=== PATIENT | male | born 1975 | race Caucasian/White ===

== ENCOUNTER 2023-05-15 08:49 | Emergency (ER) | payer BC, SELFPAY ==
[2023-05-15 08:55] VITALS: BP 113/90; PULSE 95; RESP 18; TEMP 36.6; O2SAT 97
[2023-05-15 08:58] VITALS: BP 113/90; PULSE 95; RESP 18; TEMP 36.6; O2SAT 97
--- NOTE | 2023-05-15 09:14 | ED.URI ---
HPI - URI/Sore Throat General Chief Complaint: Upper Respiratory Infection Stated Complaint: SORE THROAT/STUFFY NOSE Source: patient and RN notes reviewed Mode of arrival: ambulatory Limitations: no limitations History of Present Illness HPI Narrative: 48-year-old male presented for complaint of sore throat, headache, body aches, sinus pressure/congestion, cough, fever/chills. States he woke sweating in the night. Took negative home COVID test today. Taking Sudafed and zyrtec. Denies sob, wheezing, n/v/d. MD elicited complaint: cough Related Data Home Medications Medication Instructions Recorded Confirmed atorvastatin 20 mg tablet 20 mg DIRECTED 05/15/23 05/15/23 celecoxib 200 mg capsule 200 mg DIRECTED 05/15/23 05/15/23 chlorthalidone 25 mg tablet 25 mg DIRECTED 05/15/23 05/15/23 losartan 25 mg tablet 25 mg PO DAILY 05/15/23 05/15/23 Allergies Allergy/AdvReac Type Severity Reaction Status Date / Time erythromycin base Allergy Unknown Vomiting Verified 01/31/23 10:30 codeine AdvReac Unknown ITCHING Verified 01/31/23 10:30 Review of Systems Review of Systems: CONSTITUTIONAL: Endorses malaise, chills, sweats, fever EYES: Denies visual changes, redness, or discharge ENT: Reports rhinorrhea, congestion, sore throat CARDIOVASCULAR: Denies chest pain, palpitations, edema RESPIRATORY: Reports cough, post nasal drainage. Denies dyspnea GASTROINTESTINAL: Denies abdominal pain, nausea, vomiting, diarrhea SKIN: Denies rash or itching MUSCULOSKELETAL: Denies myalgia NEUROLOGIC: Denies headache [facility] Past Medical History Medical History Anxiety state Benign essential HTN Cervical spondylosis with radiculopathy Cervical spondylosis without myelopathy Cervical stenosis of spinal canal Chronic cholecystitis with calculus Elevated random blood glucose level Encounter for other specified surgical aftercare Encounter for other specified surgical aftercare Essential (primary) hypertension Hyperlipidemia Intradermal nevus Left flank mass Lipoma of abdominal wall Lipoma of torso Lipomatosis of subcutaneous tissue Mass of sternum Migraine without aura and without status migrainosus, not intractable Psychophysiological insomnia PTSD (post-traumatic stress disorder) Skin tag Symptomatic cholelithiasis Ventral hernia without obstruction or gangrene Ventral hernia without obstruction or gangrene Surgical History Surgical History H/O ventral hernia repair Hx laparoscopic cholecystectomy Family History Family History Grandparent Family history of lung cancer Mother Hypertension Depression Father Alcohol abuse Social History Social History Social History: Spouse Smoking status: Never smoker Second hand tobacco smoke exposure: No Alcohol intake: current Drinks per week: 3 Substance use: never Substance use type: does not use Lack of Transportation: No Lack of Food: Never True Current Housing: I Have Housing Concerned About Future Housing: No Difficulty Paying Gas/Electric Bills: No Difficulty Paying for Meds: No Currently Unemployed: No Education: Associate Degree Difficulty w/ Childcare or Family Care: No Living arrangements: with family Occupation/Education: occupation Gender identity (if verbalized by the patient): Male Sexual Orientation (if Verbalized by the Patient): Straight or Heterosexual Exam Narrative: GENERAL: mildly Ill-appearing, nontoxic no acute distress. EYES: conjunctivae clear ENT: Mucous membranes moist. TM pearly garcia with dull light reflex bilaterally; no tragal tenderness. Oropharynx not erythematous without lesions or exudate, no drooling, no hoarseness, no trismus, uvula midline. No tripod positioning, muffled vo
== END 2023-05-15 09:39 | disposition home or self-care (01) ==
PROVIDERS: Emergency Provider Nurse Practitioner Family; PCP Family Medicine
DX: J06.9 Acute upper respiratory infection, unspecified (principal); I10 Essential (primary) hypertension; M47.812 Spondylosis without myelopathy or radiculopathy, cervical region; E78.5 Hyperlipidemia, unspecified
CPT/HCPCS: 87081; 87804; 87880; 99213; G0463

== ENCOUNTER 2023-06-18 14:32 | Outpatient (RCR) | payer BC, SELFPAY ==
[2023-06-18 14:31] VITALS: BMI 40.1
[2023-06-18 15:32] VITALS: BMI 40.1
== END 2023-09-16 09:32 | disposition home or self-care (01) ==
LOC: ANHDMC 14:32
PROVIDERS: PCP Family Medicine; Visit Provider Family Medicine
DX: E11.9 Type 2 diabetes mellitus without complications (principal); Z68.42 Body mass index [BMI] 45.0-49.9, adult; Z71.3 Dietary counseling and surveillance
CPT/HCPCS: 97802

== ENCOUNTER 2024-01-14 10:44 | Outpatient (CLI) | payer BC, SELFPAY ==
--- NOTE | ~2024-01-14 | XR_ITS ---
EXAMINATION: XR elbow LT 2V DATE: 01/14/2024 10:57 INDICATION: Lateral epicondylitis, unspecified elbow. Left elbow pain. TECHNIQUE: 2 views of left elbow were obtained. COMPARISON: None. FINDINGS: Alignment is normal. No fracture. Joint spaces are normal. No elbow joint effusion. IMPRESSION: 1. Normal left elbow. Reviewed, dictated and finalized at location A. IMPRESSION: 1. Normal left elbow.
== END 2024-01-14 10:45 ==
PROVIDERS: PCP Orthopaedic Surgery; Visit Provider Student in an Organized Health Care Education/Training Program
DX: M77.12 Lateral epicondylitis, left elbow (principal)
CPT/HCPCS: 73070

== ENCOUNTER 2024-10-29 15:33 | Outpatient (CLI) | payer BC, SELFPAY ==
--- NOTE | ~2024-10-29 | CT_ITS ---
EXAMINATION: CT sinus wo con DATE: 10/29/2024 15:56 INDICATION: Chronic sinusitis TECHNIQUE: Computed tomography (CT) of the paranasal sinuses was performed without intravenous contra st. The dose-length product was 405.45 mGy-cm. Automated exposure control and iterative reconstructio n technique were employed. COMPARISON: None FINDINGS: There is mucosal thickening of the ethmoid, maxillary and left sphenoid sinuses. There is a mucous retention cyst of the right maxillary antrum. Leftward nasal septal deviation. Ostiomeatal un its are patent. Mastoids are pneumatized. IMPRESSION: 1. Moderate sinus disease. Reviewed, dictated and finalized at location B. IMPRESSION: 1. Moderate sinus disease.
== END 2024-10-29 15:34 | disposition home or self-care (01) ==
LOC: GOSHIMG 15:33
PROVIDERS: PCP Otolaryngology Otolaryngology/Facial Plastic Surgery; Visit Provider Otolaryngology Otolaryngology/Facial Plastic Surgery
DX: J32.9 Chronic sinusitis, unspecified (principal)
CPT/HCPCS: 70486

== ENCOUNTER 2025-03-08 08:27 | Outpatient (CLI) | payer BC, SELFPAY ==
--- NOTE | 2025-03-08 08:30 | ECG_ITS ---
Test Date: 2025-03-08 08:54:45 Measurements Intervals [place] Rate: 80 P: 36 OR: 172 QRS: -34 QRSD: 83 T: 21 QT: 348 QTc: 402 Interpretive Statements SINUS RHYTHM LEFT AXIS DEVIATION DELAYED PRECORDIAL R/S TRANSITION BASELINE ARTIFACT- I, II, III, AVR, AVL, AVF BORDERLINE ECG No previous ECG available for comparison Electronically Signed On 03-08-2025 09:03:07 CDT by Denis Oconnor D.O.
== END 2025-03-08 08:28 | disposition home or self-care (01) ==
LOC: ANHSURGERY 08:31
PROVIDERS: PCP Student in an Organized Health Care Education/Training Program; Visit Provider Otolaryngology Otolaryngology/Facial Plastic Surgery
DX: I10 Essential (primary) hypertension (principal); Z01.818 Encounter for other preprocedural examination; R94.31 Abnormal electrocardiogram [ECG] [EKG]
CPT/HCPCS: 93005

== ENCOUNTER 2025-03-12 02:00 | Day surgery (SDC) | payer BC, SELFPAY ==
--- OUTSIDE RECORDS SUMMARY | 2017-04-03 06:17 | XMS_ITS | Continuity of Care Document ---
[facility] [address] [facility] [place] [address] Phone Care Team Providers Care Offset Assistant Press Operator Name Role Phone Luzmaria Tomlin MD Unavailable Unavailable Advance Directives Directive Yes / No Effective Date File Name No Information Encounters Encounter Description Practice Location Reason(s) For Visit Diagnoses Date Provider Providers Copied on Encounter Formerly [facility], [address] [facility] [address], [place], [facility], [place] tel:[phone] [address] [place] [address] No Information Nabor Dutta. [address] [facility], [facility] [address], [place], [facility], [place]. tel:[phone] Family History Family Member Type Diagnosis Age At Onset No Information Payers Payer name Insurance type Covered republican ID Authoriza tion(s) No Information Social History Type Description Quantity Date Captured Comments Sex Male Smoking Status No Information Chief Complaint And Reason For Visit No Information Reason For Referral Reason For Referral No Information History Of Present Illness Encounter Date Complaint History Of Prese nt Illness No Information Functional Status Date Functional Assessmen t No Information Instructions Date Instruction Additional Infor mation No Information Assessments Type Assessment Date No Information Patient Care Teams Name Effective Dates (start - stop) Status Members No Information
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
--- NOTE | 2025-03-05 11:37 | SUR.PREOP ---
Addendum entered by Emilio Bey RN 03/08/25 12:46: Spoke with the pt and verified he can take Bupropion, amlodipine and (tizanidine if needed) the day of surgery. Pt verbalized understanding.marion Original Note: [facility] has started construction of its new state of the art ER which will open Spring 2026. With this, we anticipate parking may be a challenge for some our surgical patients and families. Parking spaces are limited but are available for all Surgical, obstetrics, and ER patients sharing this lot. If you arrive and find you are having a hard time finding a parking space, please note that we understand the challenges, please drive around the hospital and park near Hospital Entrance 1. When you enter this entrance, you can ask a volunteer to direct or take you back to the surgical waiting area to check in. We appreciate everyone?s understanding of these expected challenges while we build for your future. Report to the Outpatient Waiting Room, entrance under the green pavilion located off [address], at time _6am__ on date _03/12/25_. Planned Procedure Time: _730am_.? Time changes happen often and if your time is changed the preop area will call you the afternoon before. - You and your visitor will be asked to self-screen and do not enter if you have any COVID symptoms. Please call surgeon if you need to reschedule. - A mask is optional within the hospital at this time. Patients may have clear liquids (water, carbonated beverages, clear teas, apple juice) until 3 hours prior to surgery with a maximum of 20 ounces. - No food from midnight until time of surgery and no smoking, or chewing tobacco (or any form of nicotine). No chewing gum, candy or mints. Take only the following medications with a SIP of water on the morning of surgery: ___bupropion . DO NOT STOP ANY OF YOUR OTHER PRESCRIPTION MEDICATIONS PRIOR TO SURGERY EXCEPT THE FOLLOWING Hold all vitamins and supplements for 3 days per anesthesiologist. Medications to discontinue per physician None Date to take last dose of multivitamin is___03/08/25 Please no make-up, nail english, hairspray, perfume, deodorant, or body powder the day of surgery.? No jewelry (including any body piercings) or valuables the day of surgery, leave them at home.? Please take a shower or bath the night before, or the morning of, surgery with an antibacterial soap.? Wear comfortable, loose fitting clothing.? - Jewelry must be removed prior to entering the operating room.? Rings and piercings that are not removed may be cut off. - The hospital will not accept responsibility for valuables.? - Please leave all valuables, including medications, at home the day of surgery. If you are going home after surgery, a licensed telephone directory distributor driver must drive you home.? - NO public transportation without another adult if you receive anesthesia. - We recommend that an adult stay with you for 24 hours following discharge. - We also recommend that you do not drive, make important decision, drink alcoholic beverages, or take any drugs that were not prescribed by your health care provider for at least 24 hours after your discharge time. Follow any additional instructions given to you from your surgeon. Telephone instructions given to _Kenton_and asked if any additional questions and then verbalized understanding. Patient advised to call surgeon office or pre surgery nurse liaison [phone] if any additional questions.
[2025-03-05 11:41] VITALS: BMI 33.0
[2025-03-12] VITALS (11 sets, daily range): BP systolic 112–137; BP diastolic 75–106; PULSE 90–107; RESP 10–20; TEMP 36.3–36.6; O2SAT 95–100
[2025-03-12] MEDS: ACETAMINOPHEN 500 MG TABLET 1000 MG PO (06:35)
[2025-03-12] MEDS: LACTATED RINGERS 1,000 ML 30 ML IV CONT ×2 (06:40→10:11)
[2025-03-12] MEDS: OXYMETAZOLINE HCL 0.05% NAS 15 ML BTL (*BKC) 2 SPRAY NASAL ×3 (06:40→06:50)
--- NOTE | 2025-03-12 06:52 | WPDANESEPPF ---
Anes - Initial Pre Proc Eval Procedure: Operation Date: 03/12/25 07:30 Proposed Procedures p Image Guided Bilateral Complete Anterior and Posterior Ethmoidectomy, Bilateral Maxillary Antrostomy, Bilateral Inferior Turbinate Submucosal Resection, Bilateral Outfracture Inferior Turbinates - Judith Sheth MD s Septoplasty - Judith Sheth MD Date/Time: 03/12/25 06:52 Surgeon: Judith Sheth MD Pre Op Diagnosis: chronic sinusitis,deviated septum, Patient Data Age: 49 Gender: M Height: 1.78 m Weight: 104.5 kg Allergies Allergy/AdvReac Type Severity Reaction Status Date / Time erythromycin base Allergy Unknown Vomiting Verified 03/12/25 06:54 codeine AdvReac Unknown ITCHING Verified 03/12/25 06:54 Home Medications ?Medication ?Instructions ?Recorded ?Confirmed ?Type losartan 25 mg tablet 100 mg PO DAILY 05/15/23 03/05/25 History amlodipine 10 mg tablet 10 mg PO DAILY 01/15/24 03/05/25 History sertraline 100 mg tablet 150 mg PO DAILY 01/15/24 03/05/25 History blood-glucose sensor (FreeStyle #1 ea 03/19/24 03/05/25 Rx Priyanka 3 Plus Sensor device) atorvastatin 40 mg tablet 40 mg PO DAILY 04/08/24 03/05/25 History bupropion HCl (smoking deter) 150 150 mg PO DAILY 04/08/24 03/05/25 History mg tablet,12 hr sustained-release(smoking deterrent) azelastine 137 mcg (0.1 %) nasal 1 spray intranasal Q12H 30 days 09/28/24 03/05/25 Rx spray #30 mL tizanidine 2 mg tablet See Rx Instructions .Route 10/13/24 03/05/25 Rx .COMPLEX #60 tabs trazodone 50 mg tablet 50 mg PO QHS PRN insomnia #90 tabs 10/13/24 03/05/25 Rx multivitamin (Daily Multi-Vitamin 1 tablet PO DAILY 03/05/25 03/05/25 History tablet) tirzepatide 15 mg/0.5 mL 15 mg (0.5 mL) subcut WEEKLY #2 mL 03/05/25 Rx subcutaneous pen injector Laboratory Tests 03/12/25 03/12/25 06:42 06:44 Sodium Pending Potassium Pending Chloride Pending Carbon Dioxide Pending Anion Gap Pending BUN Pending Creatinine Pending Estim Creat Clear Calc Pending Estimated GFR Pending Glucose Pending POC Capillary Glucose 99 mg/dl (65-105) Calcium Pending Patient hx anesthesia problems: none Family hx anesthesia problems: none Results Review: All pre-operative results and documents have been reviewed as part of the pre-operative evaluation. [facility] Past Medical History Medical History Lateral epicondylitis of left elbow New onset type 2 diabetes mellitus Bronchitis Subacute maxillary sinusitis Establishing care with new doctor, encounter for PTSD (post-traumatic stress disorder) Hyperlipidemia Benign essential HTN Lipomatosis of subcutaneous tissue Ventral hernia without obstruction or gangrene Encounter for other specified surgical aftercare Symptomatic cholelithiasis Skin tag Psychophysiological insomnia Migraine without aura and without status migrainosus, not intractable Mass of sternum Lipoma of torso Left flank mass Intradermal nevus Essential (primary) hypertension Chronic cholecystitis with calculus Cervical stenosis of spinal canal Cervical spondylosis without myelopathy Cervical spondylosis with radiculopathy Anxiety state Elevated random blood glucose level Lipoma of abdominal wall Ventral hernia without obstruction or gangrene Encounter for other specified surgical aftercare Surgical History Surgical History Hx laparoscopic cholecystectomy H/O ventral hernia repair Family History Family History Grandparent Family history of lung cancer Mother Hypertension Depression Father Alcohol abuse Social History Social History Social History: Spouse Smoking status: Never smoker Second hand tobacco smoke exposure: No Alcohol intake: current Alcohol use details: 2/month Substance use: never Substance use type: does not use Do You Feel Safe in your Home?: Yes Lack of Transportation: No Lack of Food: Never True Current Housing: I Have Housing Concerned About Future Housing: No Difficulty Paying Gas/Electric Bills: No Difficulty Paying for Meds: No Currently Unemployed: No Education: Associate Degree Difficulty w/ Childcare or Family Care: No Living arrangements: with family Additional living arrangements comments: with sp Occupation/Education: occupation 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 Gender identity (if verbalized by the patient): Male Sexual Orientation (if Verbalized by the Patient): Straight or Heterosexual Spiritual care concerns: No Anes - Eval Final PreProcedure Day of Procedure 03/12/25 06:52 Patient weight: obese Heart: regular rate and rhythm Lungs: clear to auscultation Airway: Mallampati scale class II Neurological: alert and oriented Last oral intake: >/= 8 hours ASA classification: III Emergent: no Anesthetic plan: proceed Anesthesia type and monitoring: general ETT and standard monitoring Results Review: All pre-operative results and documents have been reviewed as part of the pre-operative evaluation. Informed Consent: The patient's anesthetic plan and its attendant risks and benefits were discussed with the patient/family/POA. Questions were solicited and answers provided to the satisfaction of the patient/family/POA.
[2025-03-12] MEDS: SCOPOLAMINE 1 MG PATCH 1 PATCH TRANSDERM (07:04)
--- NOTE | 2025-03-12 07:06 | WPDHPUPDATE1 ---
History and Physical Update Update Date/Time: 03/12/25 07:06 History and Physical has been reviewed, including an updated exam of the patient. There are NO changes in the patient's condition. Risks, benefits, and alternatives have been discussed and questions answered. Patient agrees to proceed with procedure.
--- NOTE | 2025-03-12 07:07 | PM.IMHP ---
H&P: HPI History of Present Illness Date/Time: 03/12/25 07:07 Chief Complaint: chronic sinusitis Review of Systems Review of Systems: All systems reviewed & are unremarkable except as noted in HPI and below Constitutional: Constitutional: Reports as per HPI ENT: Reports as per HPI Respiratory: Respiratory: Reports as per HPI Gastrointestinal: Gastrointestinal: Reports as per HPI [facility] Past Medical History Medical History (Updated 03/12/25 @ 07:07 by Judith Sheth MD) Chronic sinusitis Lateral epicondylitis of left elbow New onset type 2 diabetes mellitus Bronchitis Subacute maxillary sinusitis Establishing care with new doctor, encounter for PTSD (post-traumatic stress disorder) Hyperlipidemia Benign essential HTN Lipomatosis of subcutaneous tissue Ventral hernia without obstruction or gangrene Encounter for other specified surgical aftercare Symptomatic cholelithiasis Skin tag Psychophysiological insomnia Migraine without aura and without status migrainosus, not intractable Mass of sternum Lipoma of torso Left flank mass Intradermal nevus Essential (primary) hypertension Chronic cholecystitis with calculus Cervical stenosis of spinal canal Cervical spondylosis without myelopathy Cervical spondylosis with radiculopathy Anxiety state Elevated random blood glucose level Lipoma of abdominal wall Ventral hernia without obstruction or gangrene Encounter for other specified surgical aftercare Surgical History Surgical History Hx laparoscopic cholecystectomy H/O ventral hernia repair Family History Family History Grandparent Family history of lung cancer Mother Hypertension Depression Father Alcohol abuse Social History Social History Social History: Spouse Smoking status: Never smoker Second hand tobacco smoke exposure: No Alcohol intake: current Alcohol use details: 2/month Substance use: never Substance use type: does not use Do You Feel Safe in your Home?: Yes Lack of Transportation: No Lack of Food: Never True Current Housing: I Have Housing Concerned About Future Housing: No Difficulty Paying Gas/Electric Bills: No Difficulty Paying for Meds: No Currently Unemployed: No Education: Associate Degree Difficulty w/ Childcare or Family Care: No Living arrangements: with family Additional living arrangements comments: with sp Occupation/Education: occupation 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 Gender identity (if verbalized by the patient): Male Sexual Orientation (if Verbalized by the Patient): Straight or Heterosexual Spiritual care concerns: No Meds Home Medications and Allergies Home Medications ?Medication ?Instructions ?Recorded ?Confirmed ?Type losartan 25 mg tablet 100 mg PO DAILY 05/15/23 03/12/25 History amlodipine 10 mg tablet 10 mg PO DAILY 01/15/24 03/12/25 History sertraline 100 mg tablet 150 mg PO DAILY 01/15/24 03/12/25 History blood-glucose sensor (FreeStyle #1 ea 03/19/24 03/05/25 Rx Priyanka 3 Plus Sensor device) atorvastatin 40 mg tablet 40 mg PO DAILY 04/08/24 03/12/25 History bupropion HCl (smoking deter) 150 150 mg PO DAILY 04/08/24 03/12/25 History mg tablet,12 hr sustained-release(smoking deterrent) azelastine 137 mcg (0.1 %) nasal 1 spray intranasal Q12H 30 days 09/28/24 03/12/25 Rx spray #30 mL tizanidine 2 mg tablet See Rx Instructions .Route 10/13/24 03/05/25 Rx .COMPLEX #60 tabs trazodone 50 mg tablet 50 mg PO QHS PRN insomnia #90 tabs 10/13/24 03/05/25 Rx multivitamin (Daily Multi-Vitamin 1 tablet PO DAILY 03/05/25 03/12/25 History tablet) tirzepatide 15 mg/0.5 mL 15 mg (0.5 mL) subcut WEEKLY #2 mL 03/05/25 03/12/25 Rx subcutaneous pen injector Allergies Allergy/AdvReac Type Severity Reaction Status Date / Time erythromycin base Allergy Unknown Vomiting Verified 03/12/25 06:54 codeine AdvReac Unknown ITCHING Verified 03/12/25 06:54 Vital Signs Vital Signs - 24 hr 03/12/25 06:05 Temperature 36.6 C Pulse Rate 102 H Respiratory Rate 18 Blood Pressure 137/106 H Pulse Oximetry 100 Oxygen Delivery Room Air Exam Const: General: cooperative, healthy appearing, comfortable, no acute distress, well developed, alert, awake and Physically active Orientation/consciousness: oriented to person, oriented to place, oriented to time and patient oriented x3 HENMT: Head: normocephalic and atraumatic Ears: external ears normal and EAC's normal Face/Nose/Sinus: Normal external nose present and Normal nares present Mouth: Yes Normal oral and palatal mucosa present, Yes lip normal and Yes tongue normal Other: deviated nasal septum Eyes: General: appearance normal, both eyes and all related structures Neck: Neck: normal visual inspection, full ROM and trachea midline Resp: Effort & Inspection: normal respiratory effort and able to speak in complete sentences Cardio: Rate: regular rate Neuro: General: oriented to person, oriented to place, oriented to time and patient oriented x3 Assessment and Plan Assessment and plan (1) Allergic rhinitis: Qualifiers: Allergic rhinitis trigger: pollen Allergic rhinitis seasonality: non-seasonal Qualified Code(s): J30.1 - Allergic rhinitis due to pollen Code(s): J30.9 - Allergic rhinitis, unspecified Status: Acute (2) Chronic sinusitis: Qualifiers: Sinusitis location: ethmoidal Qualified Code(s): J32.2 - Chronic ethmoidal sinusitis Code(s): J32.9 - Chronic sinusitis, unspecified Status: Acute Plan Plan 49 yo M with Left-sided deviated nasal septum, severe allergies, I have personally reviewed the imaging study the patient performed and i agree with the report I have also reviewed the imaging study with the patient CT 10/29/2024 FINDINGS: There is mucosal thickening of the ethmoid, maxillary and left sphenoid sinuses. There is a mucous retention cyst of the right maxillary antrum. Leftward nasal septal deviation. Ostiomeatal units are patent. Mastoids are pneumatized. CT 10/30/2024 revealed :bilateral maxillary , ethmoid sinusitis ,septal deviation ,and bilateral inferior turbinate hypertrophy WILL need septoplasty+bilateral maxillary +bilateral complete ethmoidectomy bilateral complete anterior and posterior ethmoidectomy bilateral maxillary antrostomy Septoplasty bilateral inferior turbinates submucosal resection Bilateral outfracture inferior turbinates -Risk of septoplasty procedures were discussed with the patient which include but not limited to; Bleeding, infection, septal perforation, saddle nose deformity, intranasal scarring -Risks for sinus surgery: injury to the skull base, injury to the eye, need for further surgery. Risk of recurrent disease is also discussed.
[2025-03-12 07:12] LABS: Anion Gap 11 mmol/L (4-12); Blood Urea Nitrogen 13 mg/dL (9-20); Calcium 9.0 mg/dL (8.4-10.2); Carbon Dioxide 24 mmol/L (22-30); Chloride 105 mmol/L (98-107); Estimated CRCL calculation 103 ml/min; Estimated Glomerular Filt Rate > 60; Glucose 106 mg/dL (65-110); Sodium 140 mmol/L (137-145)
[2025-03-12 07:19] LABS: Potassium 3.8 mmol/L (3.4-5.0)
[2025-03-12] MEDS: TRANEXAMIC ACID 1,000MG/ISO100 1,000 MG/100 ML BAG 200 MG IVPB (07:30)
[2025-03-12] MEDS: COCAINE HCL (*CRX) 4% TOP SOLN 4 ML VIAL 1 APPLIC TOPICAL (07:44)
[2025-03-12] MEDS: LIDO 1%/EPINEPHRINE 1:100,000 50 ML VIAL (07:45)
[2025-03-12] MEDS: TRIAMCINOLONE ACET INJ 40 MG/ML VIAL XX (07:47)
--- NOTE | 2025-03-12 09:13 | S_PTH ---
PATIENT: Thomas Dutton LOC: [facility] U#:[id number] AGE/SX: 49/M ROOM: RE03/12/[address]: Judith Sheth MD : 1975 BED: DIS: 03/12/2025 SPEC #: [id number] RECD: 03/12/25 10:21 STATUS: TRISHA REQ #: [id number] ALEJANDRINA: 03/12/25 09:[address]: Judith Sheth DEPT: [facility] Surgical RECD BY: Chelsie Briseno ENTERED: 03/12/25 10:21 SP TYPE: Surgical OTHR DR: Nory Stout PA-C Tissues: A - Sinus Contents Procedures: Hematoxylin and Eosin Stain Gross and Microscopic Level 4
[2025-03-12] MEDS: MUPIROCIN 2% OINT 22 GM TUBE 1 APPLIC TOPICAL (10:02)
--- NOTE | 2025-03-12 10:17 | P.OP_ITS ---
Procedure Note - Detailed Date of Procedure 03/12/25 Pre-op Diagnosis chronic sinusitis,deviated septum, Post-op Diagnosis Same Procedure Performed ? Endoscopic septoplasty . Stereotactic guided endoscopic sinus surgery ? Image guided nasal endoscopy with maxillary antrostomy bilaterally. ? Image guided nasal endoscopy with ethmoidectomy, total (anterior and posterior) bilaterally. . Bilateral submucous resection inferior turbinate,partial or complete, any method Surgeon Judith Sheth MD Anesthesia General Description of Procedure The patient was seen in the preoperative area, informed consent was checked and confirmed. The patient was taken to the operating room, sedated and placed under general anesthesia with an endotracheal tube . Eyes were taped and were prepped and draped in the usual sterile fashion. The nose was examined, and the left anterior septum was injected with 1% lidocaine with 1:100,000 epinephrine. Ryan incision was made and a mucoperichondrial flap was elevated to expose the quadrangular cartilage and bony septum. Incision was then made anteriorly on the quadrangular cartilage to elevate the contralateral mucoperichondrial flap. The deviated quadrangular cartilage was excised with a Yonathan knife. At least 1 cm of dorsal and caudal strut of quadrangular was left in place. We resected the deviated bony septum with a Mina-Palacio and a pituitary forceps. After adequate resection of the posterior-inferior bony septum, the mucoperichondrial Flap was laid back in anatomic position.viryl 04 was used to close the incision I proceeded to the endoscopic sinus procedure starting on the right side. The agger nasi area was injected with 1% lidocaine with 1:100,000 epinephrine. The body of the middle turbinate was injected with 1% lidocaine with 1:100,000 epinephrine. The middle turbinate was gently medialized and the uncinectomy was performed with a pediatric Calvin backbiter and the uncinectomy was completed with a shaver from the inferior-posterior attachment to the superior anterior attachment. The ethmoidectomy was performed by shaving the anterior ethmoid bulla and care was taken to protect the skull base and the lamina papyracea. Maxillary antrum was re-examined with a 30-degree scope. A ball probe was passed into the antrum and was further widened with a backbiter in the anterior- inferior aspect.right posterior ethmoidectomy was done through the inferio- medial quadrant of basal lamella ,posterior ethmoid cells were removed from anterior to posterior direction and from inferior to superior taking care to preserve skull base and lamina papyracea.then ,lateralization of the middle turbinate and shaving,opening of the posterior corridor and shaving the posterior part of the middle turbinate to widen the superior meatus and i proceeded to the left side : The agger nasi area was injected with 1% lidocaine with 1:100,000 epinephrine. The body of the middle turbinate was injected with 1% lidocaine with 1:100,000 epinephrine. The middle turbinate was gently medialized and the uncinectomy was performed with a pediatric Calvin backbiter and the uncinectomy was completed with a shaver from the inferior-posterior attachment to the superior anterior attachment. The ethmoidectomy was performed by shaving the anterior ethmoid bulla and care was taken to protect the skull base and the lamina papyracea. Maxillary antrum was re-examined with a 30-degree scope. A ball probe was passed into the antrum and was further widened with a backbiter in the anterior- inferior aspect.left posterior ethmoidectomy was done through the inferio- medial quadrant of basal lamella ,posterior ethmoid cells were removed from anterior to posterior direction and from inferior to superior taking care to preserve skull base and lamina papyracea.then ,lateralization of the middle turbinate and shaving,opening of the posterior corridor and shaving the posterior part of the middle turbinate to widen the superior meatus We proceeded with submucosal inferior turbinate reduction, starting on the right side, a stab incision was made anterior mucosa of inferior turbinate. Submucosal pocket was created along the length of the inferior turbinate and the microdebrider blade 2mm thick was introduced anteriorly and into the whole submucosal pocket. Microdebrider was then used to remove the hypertrophied bony parts of anterior turbinate head and soft tissue with the outer layer intact. The residual inferior turbinate was then out fractured using Boies elevator. We proceeded to the left side. A stab incision was made on the anterior mucosa of inferior turbinate. Submucosal pocket was created along the length of the inferi or turbinate and the microdebrider blade 2 mm thick was introduced anteriorly and into the whole submucosal pocket. Microdebrider was then used to remove the hypertrophied bony parts of anterior turbinate head and soft tissue with the outer layer intact. The residual inferior turbinate was then out fractured using Boies elevator. Pledgets were removed from ethmoid cavities, PosiSep X BAM Hemostat Dressing sponges were placed in ethmoid cavities bilaterally and infiltrated with a mixture of kenalog and cefazolin. The nose was then suctioned clean and at this point the care of the patient was then transferred to the anesthesiologist where the patient emerged from general anesthesia without complication. Estimated Blood Loss 15 (ml) Drains No Packing Yes (merocele nasal packing ) Pathology Yes (left superior meatus ) Complications No immediate complications Condition Stable Disposition PACU [facility] Billing Surgery - Charge Forward: Surgery Billing
[2025-03-12] MEDS: ONDANSETRON INJ 4 MG/2 ML VIAL IV PUSH (10:44)
[2025-03-12] MEDS: methylPREDNISolone ACETATE 40 MG/ML VIAL 20 MG IM (10:57)
== END 2025-03-12 13:15 | disposition home or self-care (01) ==
PROVIDERS: Anesthesiology; PCP Student in an Organized Health Care Education/Training Program; Visit Provider Otolaryngology Otolaryngology/Facial Plastic Surgery
PROC: (CPT 30520; principal; 2025-03-12 07:30)
PROC: (CPT 30520; 2025-03-12 07:30)
DX: J32.2 Chronic ethmoidal sinusitis (principal); J34.2 Deviated nasal septum; J34.3 Hypertrophy of nasal turbinates; J30.1 Allergic rhinitis due to pollen; G89.18 Other acute postprocedural pain; E78.5 Hyperlipidemia, unspecified; I10 Essential (primary) hypertension; F51.04 Psychophysiologic insomnia; F41.9 Anxiety disorder, unspecified; F43.10 Post-traumatic stress disorder, unspecified; K80.10 Calculus of gallbladder with chronic cholecystitis without obstruction; M47.22 Other spondylosis with radiculopathy, cervical region; M48.02 Spinal stenosis, cervical region; E66.9 Obesity, unspecified; Z68.32 Body mass index [BMI] 32.0-32.9, adult; Z79.85 Long-term (current) use of injectable non-insulin antidiabetic drugs; Z98.890 Other specified postprocedural states; Z90.49 Acquired absence of other specified parts of digestive tract; Z87.19 Personal history of other diseases of the digestive system; Z80.1 Family history of malignant neoplasm of trachea, bronchus and lung
CPT/HCPCS: 30520; 31256; 31255; 30140; 61782; 36415; 80048; 82948; 88305; A9270; J0330; J0690; J1010; J1100; J1200; J2003; J2004; J2250; J2405; J2704; J3010; J3290; J3301; J7050; J7120